=== PATIENT | male | born 1955 | race Caucasian/White ===

== ENCOUNTER 2017-11-13 08:27 | Outpatient (RCR) | payer OTHER ==
[2017-11-04 08:34] VITALS: BP 132/87
[~2017-11-13 08:27] MED LIST: ASPI-757 PO; CETI-176 PO; CLOB15CR22 TP; FLUT9.9S; FOLI-68 PO; PENT400T57 PO; SAW450CA3 PO; VITA1CAP46 PO; [UNRECOGNIZED DRUG - CODE] PO
[2017-11-13 08:34] VITALS: BP 122/73
--- NOTE | 2017-11-13 16:08 | ONCOLOGY FOLLOW UP NOTE ---
EVENT DATE: November 13, 2017 DIAGNOSES 1. Livedoid vasculopathy. 2. Seasonal allergy. 3. Raynaud phenomenon. 4. 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 5. Positive anticardiolipin antibody IgM at 14. 6. High positive MAGGIE titer at 1:2560. CHIEF COMPLAINT The patient is here today for followup of his livedoid vasculopathy. HEMATOLOGY HISTORY The patient is a 62-year-old male who is followed by Dr. Merchant for a skin rash on the medial side of the right skin of the right foot. The patient has been seen by Dr. Merchant, who made the diagnosis of livedoid vasculopathy. His skin rash is mainly on the medial side of the right ankle. He had color changes of hemosiderin staining of the skin. The patient also has a history of what looks like Raynaud phenomenon. Apart from the skin rash and the Raynaud phenomenon, the patient has seasonal allergy. Serum protein electrophoresis was done and came back normal . Cryoglobulin was also negative. MAGGIE is high positive at 1:2560. C3 complement was normal at 100, C4 complement positive at 20. CH50 was mildly elevated at 19. Anticardiolipin IgG was normal at 10. Anticardiolipin IgM was mildly elevated at 14. Cyclic citrullinated peptide was normal at 5. Beta 2 glycoprotein IgG and IgM were normal. Lupus anticoagulant was negative. Cryoglobulin was negative. Prothrombin gene mutation was negative. Factor V Leiden mutation was negative. Rheumatoid factor was mildly elevated at 16. C reactive protein was less than 0.5. Protein C function was normal at 159. Protein C total was normal at 113. Protein S function was normal at 77. Protein S total was normal at 121. Antithrombin 3 was normal at 93. Homocysteine was mildly elevated at 12. HISTORY OF PRESENT ILLNESS The patient is here today for followup of his livedoid vasculopathy and heterozygous state for methylenetetrahydrofolate reductase [id number] mutation. Patient is doing fine currently. He developed a rash similar to his vasculopathy rash, but patient saw a supplier manager who diagnosed him at that time with stasis dermatitis and treated successfully. He is complaining of occasional headache, but other than that he is really doing very well. PAST MEDICAL HISTORY 1. Livedoid vasculopathy associated with atrophie joslyn. 2. Raynaud phenomenon. 3. Seasonal allergy. PAST SURGICAL HISTORY Right knee arthroscopic surgery x2. SOCIAL HISTORY The patient is . He does not have children. 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 He quit smoking in 1991 after half pack a day for twelve years. He drinks a beer daily, but denies any abuse of illicit drugs. FAMILY HISTORY Mother with lung cancer. She was a previous smoker. Maternal grandfather with lung cancer and was a nonsmoker. Sister with breast cancer and some sort of cancer in the muscles. Father had melanoma. CURRENT MEDICATIONS 1. Cetirizine. 2. Aspirin 325 mg daily. 3. Trental 400 mg three times daily. 4. Flonase for seasonal allergy. 5. High dose prednisone. 6. Folic acid 3 mg daily. ALLERGIES No known drug allergies. REVIEW OF SYSTEMS CONSTITUTIONAL: No appetite or weight change. No fever, chills or sweating. No recent infection. HEENT: Ears: No tinnitus or hearing problem. Nose: No nasal discharge or epistaxis. Throat: No sore throat or mouth ulcers. Eyes: No diplopia or visual changes. RESPIRATORY: No shortness of breath. Occasional cough,. No expectoration or hemoptysis. CARDIOVASCULAR: No chest pain, orthopnea, or paroxysmal nocturnal dyspnea (PND) . No edema. No palpitations. GASTROINTESTINAL: No nausea or vomiting. No diarrhea or constipation. No change in bowel movements. No heartburn or swallowing difficulties. No abdominal pain. No jaundice. No hematemesis, melena or rectal bleeding. GENITOURINARY: No hematuria or dysuria. MUSCULOSKELETAL: No pain in the muscles, joints or bones. NEUROLOGICAL: No tingling or numbness in the hands or feet. No convulsions. He has occasional headache. HEMATOLOGIC/LYMPHATIC: He is weak, tired and fatigued. No enlarged lymph nodes. SKIN: He was treated successfully for stasis dermatitis. PSYCHIATRIC: No anxiety or depression. No anxiety or depression. PHYSICAL EXAMINATION GENERAL: Looks stable. Well-developed, well-nourished, and in no acute distress. VITAL SIGNS: Blood pressure 122/73, pulse 72 per minute, respirations 16 per minute, temperature 96.9, pulse oximetry 99% on room air. HEENT: Head: Atraumatic. No sinus tenderness to palpation. Eyes: No icterus or conjunctivitis. Mouth and throat: No oral thrush or mucositis. NECK: Supple. No cervical or supraclavicular lymphadenopathy. LUNGS: Clear to auscultation and percussion bilaterally. HEART: Regular rate and rhythm. No gallops, murmurs, clicks or rubs. ABDOMEN: Soft and lax. No tenderness. No hepatosplenomegaly. No masses. EXTREMITIES: No cyanosis, clubbing or edema. LYMPHATICS: No peripheral lymphadenopathy. NEUROLOGICAL: Conscious, alert and oriented times three. No focal motor or sensory deficits. PSYCHIATRIC: Mood and affect appear normal. DIAGNOSTIC DATA Homocysteine level is stable at 11. Anticardiolipin IgM antibody is 25, which is up from 15 last visit. ASSESSMENT 1. Livedoid vasculopathy, could be associated with hypercoagulable state. The patient has elevated anticardiolipin IgM and heterozygous state of methylenetetrahydrofolate reductase [id number] mutation. He is currently on folic acid 3 mg daily. I will continue the same dose and I will see him again in six months with fasting homocysteine level. His current homocysteine level is stable at 11. 2. Positive antinuclear antibody. Initially it was 1:2560, which dropped over time. Patient is followed by a mechanical design technician with possible autoimmune disease with Sjogren syndrome. He is not using any steroid at the moment. He developed a rash similar to his vasculopathy rash, but he was diagnosed with stasis dermatitis by his supplier manager and was treated successfully for that. 3. Heterozygous state for methylenetetrahydrofolate reductase [id number] mutation. The patient does not like B complex. He is maintained currently on folic acid 3 mg daily. His homocysteine level is stable at 11. We will continue the same and repeat the fasting homocysteine level in six months. 4. Positive anticardiolipin IgM at 14, which increased to 15, then dropped to 11, but his current anticardiolipin IgM this visit is 25. Patient had viral infection recently. I am planning to repeat his anticardiolipin antibodies again with his next visit in six months. 5. Seasonal allergy. PLAN 1. Folic acid 3 mg daily. 2. Patient to return in six months with fasting homocysteine and anticardiolipin antibodies. 3. The patient to contact us for any new concerns or complaints. [facility] HOSPITALOlga
== END 2017-12-10 13:18 | disposition home or self-care (01) ==
LOC: ONC 08:27
PROVIDERS: ATTEND Internal Medicine Hematology
DX: L95.0 Livedoid vasculitis (principal); E72.12 Methylenetetrahydrofolate reductase deficiency; Z87.891 Personal history of nicotine dependence; Z79.82 Long term (current) use of aspirin; R53.1 Weakness; R53.83 Other fatigue
CPT/HCPCS: 36415; 83090; 86147; 99212

== ENCOUNTER → 2017-11-28 | Outpatient (CLI) | payer OTHER ==
--- NOTE | 2017-11-28 16:46 | RADIOLOGY IMAGING REPORT ---
FACILITY: [facility] - [place] PATIENT NAME: Christofer Mao : 1955 MR: [id number] V: [id number] EXAM DATE: ORDERING PHYSICIAN: DIMA HECTOR TECHNOLOGIST: Location: [facility] - [place] Patient: Christofer Mao : 1955 Visit/Account:[id number] Date of Sevice: 11/28/2017 EXAMINATION: Scrotal ultrasound with duplex Doppler evaluation. HISTORY: Testicular pain. COMPARISON: None. FINDINGS: Normal size and echogenicity of both testicles. No focal intratesticular mass. The right testis trent ures 4.1 x 2.0 x 3.8 cm; the left testis 4.4 x 2.2 x 3.5 cm. Both testicles demonstrate normal and sy mmetric vascularity with Doppler evaluation. The left epididymis is mildly heterogeneous and hypervascular compared to the contralateral right deana e. The epididymal head measures 1.1 cm in the right and 1.5 cm on the left. Small left hydrocele. No right-sided hydrocele. A small left varicocele is present. IMPRESSION: 1. Normal ultrasound appearance of both testicles, with normal and symmetric vascularity. 2. Left epididymis appears slightly heterogeneous and hypervascular relative to the right side. This may be compatible with epididymitis. 3. Small left varicocele. 4. Small left hydrocele. Report Dictated By: Fly Méndez MD at 11/28/2017 4:36 PM Report E-Signed By: Fly Méndez MD at 11/28/2017 4:41 PM WSN:[id number]
== END ==
LOC: US 03:12
PROVIDERS: ATTEND Family Medicine
DX: I86.1 Scrotal varices (principal); N43.3 Hydrocele, unspecified
CPT/HCPCS: 76870

== ENCOUNTER 2018-05-21 08:00 | Outpatient (RCR) | payer OTHER ==
[2018-05-04 08:34] VITALS: BP 124/76
[2018-05-21 08:23] VITALS: BP 116/70
--- NOTE | 2018-05-21 20:59 | ONCOLOGY FOLLOW UP NOTE ---
EVENT DATE: May 21, 2018 CHIEF COMPLAINT Follow up for livedoid vasculopathy. HEMATOLOGY HISTORY Patient is a 62-year-old male who was seen today in six-month followup for livedoid vasculopathy. He first noted this in 2015 with a rash on the medial side of the right ankle. He met with Dr. Merchant, photo lab technician, who diagnosed this. When seen by Dr. Arenas, he was noted to have a very high MAGGIE. He has been followed by Rheumatology since then, but this issue is now quiescent, possible Sjogren syndrome, but without symptoms. He was noted to have a heterozygote MTHFR [id number] mutation with a positive anticardiolipin antibody. HISTORY OF PRESENT ILLNESS The patient is seen today in six-month followup. Overall, he is doing very well. He retired in November and is happy about that. He continues on folic acid 1 mg t.i.d. He had an episode of stasis dermatitis, but this has been controlled with clobetasol two times per week. Things are quiescent at this time, and he has had no open lesions. He received his flu vaccine in April 2018. He denies any other new complaints. He uses saw palmetto which he believes is helpful at night for increased frequency of urination at night. PAST MEDICAL HISTORY 1. Livedoid vasculopathy associated with atrophie joslyn. 2. Raynaud phenomenon. 3. Seasonal allergy. PAST SURGICAL HISTORY Right knee arthroscopic surgery times two. SOCIAL HISTORY The patient is . They do not have any children. 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 He quit smoking in 1991 after half pack a day for 12 years. He drinks socially, but denies abuse of illicit drugs. FAMILY HISTORY Mother with lung cancer. She was a previous smoker. Maternal grandfather with lung cancer and was a nonsmoker. Sister with breast cancer and some sort of cancer in the muscles. Father had melanoma. CURRENT MEDICATIONS 1. Cetirizine. 2. Aspirin 325 mg daily. 3. Trental 400 mg three times daily. 4. Flonase for seasonal allergy. 5. High-dose prednisone. 6. Folic acid 1 mg t.i.d. 7. Clobetasol 0.05% cream two times per week. 8. Saw palmetto. ALLERGIES No known drug allergies. REVIEW OF SYSTEMS A 12-point review of systems is performed and is negative except as stated above. PHYSICAL EXAMINATION VITAL SIGNS: Blood pressure 116/70, pulse 80, respirations 16, temp 97.3, O2 sat 99%. GENERAL: Patient is a well-developed, well-nourished male in no acute distress. HEAD: Normocephalic, atraumatic. EYES: Sclerae anicteric. CARDIOVASCULAR: Heart rate regular, 80 per minute, without murmur, S3, or S4. LUNGS: Clear bilaterally. EXTREMITIES: No edema. Medial aspect of his right ankle has livedoid vasculopathy changes with atrophie joslyn. No open lesions at this time. The area is somewhat discolored, but very stable. LABORATORY Homocysteine level on 05/04/18 was 11, which has been stable for the past two years. Anticardiolipin IgG was 2, and anticardiolipin IgM decreased from 25 to 17. IMPRESSION AND PLAN The patient is a 62-year-old male with: 1. Livedoid vasculopathy, possibly associated with hypercoagulable state. He has had an elevated anticardiolipin IgM as well as heterozygous state of MTHFR [id number] mutation. Currently, his skin is without open lesions and under good control with clobetasol two times per week. 2. Stasis dermatitis. This resolved after treatment with clobetasol. He is now maintaining his skin with very small amounts twice a week. He was treated with Dapsone, but this did not help. 3. Heterozygous state for MTHFR G1061A mutation. He continues on folic acid 1 mg t.i.d. 4. Positive anticardiolipin IgM. This had increased to 25 at last visit, likely due to a viral infection. Today, labs show an anticardiolipin IgM of 17. 5. Patient will follow up in six months with fasting homocysteine level and anticardiolipin antibodies before that visit. [place]
== END 2018-06-10 13:22 | disposition home or self-care (01) ==
LOC: ONC 08:00
PROVIDERS: ATTEND Internal Medicine Hematology
DX: L95.0 Livedoid vasculitis (principal); Z87.891 Personal history of nicotine dependence
CPT/HCPCS: 36415; 82784; 83090; 86147; 99212

== ENCOUNTER 2018-11-19 08:30 | Outpatient (RCR) | payer OTHER ==
[2018-11-05 08:23] VITALS: BP 106/71
[~2018-11-19 08:30] MED LIST changes: -PENT400T57 PO; +PENT400T83 PO
[2018-11-19 08:51] VITALS: BP 109/66
--- NOTE | 2018-11-19 20:29 | ONCOLOGY FOLLOW UP NOTE ---
EVENT DATE: November 19, 2018 CHIEF COMPLAINT Follow up for livedoid vasculopathy. HEMATOLOGY HISTORY Patient is a 63-year-old male who was seen today in six-month followup for livedoid vasculopathy. He first noted this in 2015 with a rash on the medial side of the right ankle. He met with Dr. Merchant, global recruiter, who diagnosed this. When seen by Dr. Arenas, he was noted to have a very high MAGGIE. He has been followed by Rheumatology since then, but this issue is now quiescent, possible Sjogren syndrome, but without symptoms. He was noted to have a heterozygote MTHFR [id number] mutation with a positive anticardiolipin antibody. He reports that he has been in remission from this and still currently uses clobetasol two times per week, with minimal amounts needed. HISTORY OF PRESENT ILLNESS The patient is seen today for ongoing six-month followup. He reports doing well. He retired last year in November 2017. He remains on folic acid 1 mg t.i.d. He has not had any flare-ups of his stasis dermatitis. This has been well maintained with clobetasol two times per week. He has not had any open lesions. He is up to date with health maintenance, having a flu vaccine in April 2018. He reports that he had the Shingrix vaccine, both doses in the last six months since we have seen him. He does report experiencing some viral symptoms after receiving his vaccination, to include two or three days of extreme joint aches and fatigue. This has now resolved. He continues to use saw palmetto as he believes this helps at night for his increased nocturia. Overall, things remain quiescent. PAST MEDICAL HISTORY 1. Livedoid vasculopathy associated with atrophie joslyn. 2. Raynaud phenomenon. 3. Seasonal allergy. PAST SURGICAL HISTORY Right knee arthroscopic surgery times two. FAMILY HISTORY Mother with lung cancer. She was a previous smoker. Maternal grandfather with lung cancer and was a nonsmoker. Sister with breast cancer and some sort of cancer in the muscles. Father had melanoma. SOCIAL HISTORY The patient is . They do not have any children. 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 He quit smoking in 1991 after half pack a day for 12 years. He drinks socially, but denies abuse of illicit drugs. CURRENT MEDICATIONS 1. Cetirizine. 2. Aspirin 325 mg daily. 3. Trental 400 mg three times daily. 4. Flonase for seasonal allergy. 5. High-dose prednisone. 6. Folic acid 1 mg t.i.d. 7. Clobetasol 0.05% cream two times per week. 8. Saw palmetto. ALLERGIES No known drug allergies. REVIEW OF SYSTEMS CONSTITUTIONAL: Patient denies any recent fevers, chills, or night sweats. No recent infections. He had some flu-like symptoms after receiving his shingles vaccine a few months ago. HEENT: No vision changes. No hearing difficulties. No mouth sores. No dysphagia or odynophagia. LUNGS: No cough, sputum production, or hemoptysis. No pleuritic chest pain. CARDIAC: No chest pain. No syncope or presyncope. GASTROINTESTINAL: No abdominal pain, nausea, vomiting, constipation, diarrhea, bright red blood per rectum, or melena. Appetite is normal. GENITOURINARY: He has a history of nocturia, currently stable. No dysuria or hematuria. PSYCHIATRIC: He denies any severe anxiety, severe depression, suicidal or homicidal ideation. SKIN: He denies any rash or generalized pruritus. His stasis dermatitis is currently under control. Remainder of a 12-point review of systems is performed today and is otherwise negative. PHYSICAL EXAMINATION VITAL SIGNS: Weight 88.6 kg. T 97.9, P 66, R 16, BP 109/66, oxygen saturation 97% room air. GENERAL: In general, this is a pleasant 63-year-old gentleman who appears well nourished, well hydrated, and is in no acute distress. HEAD: Atraumatic, normocephalic. EYES: Sclerae anicteric. ENT, MOUTH: Moist mucous membranes. No oral lesions. NECK: Supple. No lymphadenopathy. LUNGS: Clear to auscultation bilaterally. HEART: Regular rate and rhythm. No ectopy. ABDOMEN: Soft, nontender, nondistended. Bowel sounds positive x4. PSYCHIATRIC: Mood and affect are appropriate. NEUROLOGIC: Patient is awake, alert, and oriented x3. MUSCULOSKELETAL: Gait and ambulation are steady. LABORATORY Labs on 11/05/2018: Homocysteine level 12. Anticardiolipin antibodies, IgG 5. Anticardiolipin IgM 14. IMPRESSION AND PLAN The patient is a 63-year-old male with: 1. Livedoid vasculopathy, possibly associated with hypercoagulable state. He has had an elevated anticardiolipin IgM as well as heterozygous state of MTHFR [id number] mutation. Currently, his skin is without open lesions and under good control with clobetasol two times per week. 2. We reviewed his most recent labs. His IgM has decreased down to 14 from previous 17. His IgG did increase a little bit up to 5, up from 2. This may all certainly be related to recent vaccination and viral symptoms associated with that. He is feeling well, and we will continue to recheck these. 3. Stasis dermatitis. Resolved after treatment with clobetasol, and he is maintaining his skin with only small amounts twice a week. He was treated with Dapsone in the past, but this did not help. He will continue on his current regimen and will follow up with Dermatology per their recommendations. 4. Heterozygous state for MTHFR [id number] mutation. He will remain on folic acid 1 mg t.i.d. 5. Patient will return to clinic in six months for followup. He will have repeat labs prior to his visit with us, to include same labs as this visit with homocysteine level and anticardiolipin antibiotics to include IgG and IgM levels. [facility]
== END 2018-12-14 13:05 | disposition home or self-care (01) ==
LOC: ONC 08:30
PROVIDERS: ATTEND Internal Medicine Hematology
DX: L95.0 Livedoid vasculitis (principal); E72.12 Methylenetetrahydrofolate reductase deficiency; I87.2 Venous insufficiency (chronic) (peripheral); Z87.891 Personal history of nicotine dependence
CPT/HCPCS: 36415; 83090; 86147; 99212